=== PATIENT | female | born 1960 | race Native Hawaiian/Other Pacific Islander ===

== ENCOUNTER 2017-12-13 08:03 | Outpatient (CLI) | payer BC ==
[~2017-12-13 08:03] MED LIST: LEXAPRO10 MG PO
== END 2017-12-13 21:45 | disposition home or self-care (01) ==
LOC: RAD 08:03
DX: M85.89 Other specified disorders of bone density and structure, multiple sites (principal)

== ENCOUNTER 2020-10-30 10:19 | Outpatient (CLI) | payer OTHER | END 2020-10-30 21:38 | disposition home or self-care (01) | LOC: INF 10:19 | PROVIDERS: ATTEND Internal Medicine | DX: Z23 Encounter for immunization (principal) | CPT/HCPCS: 96372 ==

== ENCOUNTER 2020-11-17 11:03 | Outpatient (CLI) | payer OTHER | END 2020-11-17 21:14 | disposition home or self-care (01) | LOC: INF 11:03 | PROVIDERS: ATTEND Internal Medicine | DX: Z23 Encounter for immunization (principal) | CPT/HCPCS: 96372 ==

== ENCOUNTER 2021-01-13 10:03 | Outpatient (CLI) | payer OTHER ==
[2021-01-13 10:20] LABS: PLATELET COUNT 263 K/uL (152-353)
[2021-01-13 10:23] LABS: POTASSIUM 4.3 mmol/L (3.6-5.2)
== END 2021-01-13 20:19 | disposition home or self-care (01) ==
LOC: LAB 10:03 → US 10:03
PROVIDERS: ATTEND Nurse Practitioner Family
DX: R74.01 Elevation of levels of liver transaminase levels (principal)
CPT/HCPCS: 80053; 82150; 83690; 85027

== ENCOUNTER 2021-09-03 06:33 | Outpatient (CLI) | payer OTHER ==
[2021-09-03 07:57] LABS: PLATELET COUNT 351 K/uL (152-353)
[2021-09-03 08:16] LABS: POTASSIUM 3.8 mmol/L (3.6-5.2)
== END 2021-09-03 20:30 | disposition home or self-care (01) ==
LOC: LABW 06:33
PROVIDERS: ATTEND Internal Medicine Gastroenterology
DX: R94.5 Abnormal results of liver function studies (principal)
CPT/HCPCS: 36415; 80053; 80074; 82103; 82172; 82247; 82248; 82390; 82465; 82525; 82728; 82947; 82977; 83010; 83516; 83540; 83550; 83883; 84450; 84460; 84466; 84478; 85027; 85610; 86038

== ENCOUNTER 2021-09-17 07:52 | Outpatient (CLI) | payer OTHER | END 2021-09-17 23:03 | disposition home or self-care (01) | LOC: US 07:52 | PROVIDERS: ATTEND Internal Medicine Gastroenterology | DX: R94.5 Abnormal results of liver function studies (principal) ==

== ENCOUNTER 2021-09-27 12:29 | Outpatient (CLI) | payer OTHER | END 2021-09-27 19:01 | disposition home or self-care (01) | LOC: NM 12:29 | PROVIDERS: ATTEND Internal Medicine Gastroenterology | DX: R10.11 Right upper quadrant pain (principal); K80.80 Other cholelithiasis without obstruction | CPT/HCPCS: A9537 ==

== ENCOUNTER 2022-08-09 19:26 | Emergency (ER) | payer OTHER ==
[~2022-08-09] VITALS: Ht 152.4 cm; Wt 52.2 kg
[2022-08-09 20:30] VITALS: BP 130/48; TEMP 98.1
== END 2022-08-09 20:30 | disposition home or self-care (01) ==
LOC: ED 19:26
DX: S20.20XA Contusion of thorax, unspecified, initial encounter (principal); V44.5XXA Car driver injured in collision with heavy transport vehicle or bus in traffic accident, initial encounter; Y93.89 Activity, other specified; Y92.89 Other specified places as the place of occurrence of the external cause
CPT/HCPCS: 99283